=== PATIENT | male | born 1945 | race Hispanic/Latino ===

== ENCOUNTER 2018-04-27 11:27 | Observation (INO) | payer MEDICARE, BC ==
[2018-04-27 14:11] LABS: HEMOGLOBIN 13.5 g/dL (14.0-18.0); MEAN CELL VOLUME 94.4 fl (80.0-105.0); MEAN CORPUSCULAR HEMOGLOBIN 31.3 pg (25.0-35.0); MEAN CORPUSCULAR HGB CONC 33.1 g/dl (31.0-37.0); MEAN PLATELET VOLUME 11.1 fl (7.0-11.0); RBC 4.32 10^6/uL (3.5-6.1); RED CELL DISTRIBUTION WIDTH 13.7 % (11.5-14.5); WHITE BLOOD COUNT 4.2 10^3/uL (4.5-11.0)
[2018-04-27 14:20] LABS: INR 2.77; PARTIAL THROMBOPLASTIN TIME 40.6 Seconds (25.1-36.5); PROTHROMBIN TIME 32.5 SECONDS (9.4-12.5)
[2018-04-27 14:22] LABS: ALB/GLOB RATIO 1.6 (1.1-1.8); ALBUMIN 4.2 g/dL (3.0-4.8); ALT/SGPT 36 U/L (7-56); AST/SGOT 27 U/L (17-59); BLOOD UREA NITROGEN 20 mg/dL (7-21); CALCIUM 9.6 mg/dL (8.4-10.5); GFR NON-AFRICAN AMERICAN > 60
[2018-04-27 14:34] LABS: B-TYPE NATRIURETIC PEPTIDE 615 pg/mL (0-450); TROPONIN I 0.06 ng/mL
[2018-04-27 14:43] VITALS: BMI 37.2
--- NOTE | 2018-04-27 16:22 | RAD ---
Date of service: 04/27/2018 PROCEDURE: CHEST RADIOGRAPH, 1 VIEW HISTORY: shortness of breath COMPARISON: 12/10/2017 FINDINGS: LUNGS: Clear. PLEURA: No pneumothorax or pleural fluid seen. CARDIOVASCULAR: No aortic atherosclerotic calcification present. Cardiomegaly. No evidence of acute, significant cardiovascular disease. OSSEOUS STRUCTURES: No significant abnormalities. VISUALIZED UPPER ABDOMEN: Normal. OTHER FINDINGS: None. IMPRESSION: No active disease. No acute/significant interval changes.
--- NOTE | 2018-04-27 16:56 | US ---
HISTORY: Leg pain and swelling. Evaluate for DVT PHYSICIAN(S): Adal Valdez MD. TECHNIQUE: Duplex sonography and color-flow Doppler with graded compression were used to evaluate the deep venous systems of both lower extremities. FINDINGS: The visualized deep venous systems of both lower extremities are sonographically normal and compressible. Normal wave forms and augmentation are seen. There is no sonographic evidence for deep venous thrombosis in the visualized segments of both lower extremities. IMPRESSION: No sonographic evidence for deep venous thrombosis in the visualized segments of both lower extremities.
--- NOTE | 2018-04-27 17:40 | CARD ---
APPROVED REPORT Date of service: 04/27/2018 EKG Measurement Heart [id number] <Conclusion> Sinus rhythm with 1st degree AV block with premature supraventricular complexes Left axis deviation Nonspecific intraventricular conduction delay Abnormal ECG
--- NOTE | 2018-04-27 18:05 | CP.PCM.HP ---
<Slick Swift - Last Filed: 04/27/18 18:23> History of Present Illness - History of Present Illness History of Present Illness: Medicine History and Physical for Hospitalist Service, Dr. Rabia Swift, PGY-1 This is a 72 y o male with PMhx aortic valve replacement 26 y ago (on Coumadin and Lasix since), and HTN who presents to the ED c/o 3 week hx of swelling of LEs b/l along with worsening shortness of breath. Pt states that the shortness of breath has been getting progressively worse to the point where he is unable to lie down flat in bed without being short of breath. States elevating his legs alleviates LE swelling. Denies associated color changes, LE pain, or numbness/tingling. Denies hx of recent sick contacts. States he is compliant with taking home medications as prescribed. Denies chest pain or palpitations. Denies n/v/d/c, abd pain, urinary complaints, fever, chills, vision changes, or other symptoms. 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 Wise Primary E M Assembler: Dr. Mercedes Present on Admission - Present on Admission Any Indicators Present on Admission: No History of DVT/PE: No History of Uncontrolled Diabetes: No Urinary Catheter: No Decubitus Ulcer Present: No Review of Systems - Constitutional Constitutional: absent: Chills, Fever - Cardiovascular Cardiovascular: Dyspnea on Exertion. absent: Chest Pain - Respiratory Respiratory: Dyspnea on Exertion. absent: Cough, Hemoptysis, Wheezing, Chest Congestion - Gastrointestinal Gastrointestinal: absent: Abdominal Pain, Constipation, Diarrhea, Nausea, Vomiting Past Patient History - Infectious Disease Hx of Infectious Diseases: None - Tetanus Immunizations Tetanus Immunization: Unknown - Past Social History Chewing Tobacco Use: No - CARDIAC Hx Pacemaker: No - NEUROLOGICAL Hx Paralysis: No - HEMATOLOGICAL/ONCOLOGICAL Hx Blood Transfusions: No Hx Blood Transfusion Reaction: No - MUSCULOSKELETAL/RHEUMATOLOGICAL Hx Musculoskeletal Disorders: No - PSYCHIATRIC Hx Emotional Abuse: No Hx Physical Abuse: No Hx Substance Use: No - SURGICAL HISTORY Hx Surgeries: Yes - ANESTHESIA Hx Anesthesia Reactions: No Hx Malignant Hyperthermia: No Meds Allergies/Adverse Reactions: Allergies Allergy/AdvReac Type Severity Reaction Status Date / Time No Known Allergies Allergy Verified 11/02/13 16:14 Physical Exam - Constitutional Appears: Non-toxic, No Acute Distress - Head Exam Head Exam: ATRAUMATIC, NORMOCEPHALIC - Eye Exam Eye Exam: EOMI, Normal appearance, PERRL - ENT Exam ENT Exam: Mucous Membranes Moist - Respiratory Exam Respiratory Exam: Clear to Auscultation Bilateral, NORMAL BREATHING PATTERN. absent: Rales, Rhonchi, Wheezes - Cardiovascular Exam Cardiovascular Exam: REGULAR RHYTHM, +S1, +S2 Additional comments: Opening snap murmur heard on exam - GI/Abdominal Exam GI & Abdominal Exam: Normal Bowel Sounds, Soft. absent: Distended, Organomegaly, Tenderness - Extremities Exam Extremities exam: Positive for: full ROM, normal capillary refill, normal inspection, pedal edema (2+ pitting edema b/l), pedal pulses present. Negative for: joint swelling - Neurological Exam Neurological exam: Alert, CN II-XII Intact, Oriented x3, Reflexes Normal - Psychiatric Exam Psychiatric exam: Normal Affect, Normal Mood - Skin Skin Exam: Dry, Intact, Normal Color, Warm Results - Labs Result Diagrams: 04/27/18 12:45 04/27/18 12:45 Labs: Laboratory Results - last 24 hr 04/27/18 04/27/18 04/27/18 12:45 12:45 12:45 WBC 4.2 L RBC 4.32 Hgb 13.5 L Hct 40.8 L MCV 94.4 MCH 31.3 MCHC 33.1 RDW 13.7 Plt Count 147 MPV 11.1 H PT 32.5 H INR 2.77 APTT 40.6 H Sodium 139 Potassium 4.5 Chloride 101 Carbon Dioxide 33 Anion Gap 10 BUN 20 Creatinine 0.7 L Est GFR ( Amer) > 60 Est GFR (Non-Af Amer) > 60 Random Glucose 123 H Calcium 9.6 Total Bilirubin 0.8 AST 27 ALT 36 Alkaline Phosphatase 66 Lactate Dehydrogenase 668 Total Creatine Kinase 58 Troponin I 0.06 D NT-Pro-B Natriuret Pep 615 H Total Protein 6.8 Albumin 4.2 Globulin 2.6 Albumin/Globulin Ratio 1.6 Assessment & Plan - Assessment and Plan (Free Text) Assessment: This is a 72 y o male with PMhx aortic valve replacement 26 y ago (on Coumadin and Lasix since), and HTN who presents to the ED c/o 3 week hx of swelling of LEs b/l along with worsening shortness of breath. Likely 2/2 CHF exacerbation versus dependent edema. Plan: B/l LE swelling Likely 2/2 CHF exacerbation vs. dependent edema Doppler LE b/l demonstrates no evidence of DVT S/p Lasix in ED C/w Lasix 20 mg IVP bid Shortness of breath Likely 2/2 CHF exacerbation Saturating well on room air at this time CXR demonstrated no active disease BNP elevated at 615 Elevated Trop at 0.06, repeat trops x2 pending Pt denies chest pain or palpitations at this time Strict I's/O's Daily weights Lasix IVP bid Cardio consulted, Dr. Mercedes, recs appreciated HHD HTN Lasix IVP bid C/w home med Coreg 25 mg PO bid C/w Verapamil 180 mg daily Aortic valve replacement C/w Coumadin 5 mg PO this evening F/u repeat INR check in am tomorrow HLD C/w home Simvastatin daily DVT ppx: Coumadin GI ppx: n/a Pt seen, examined with, and plan discussed with Dr. Jones, attending physician. Slick Swift DO PGY-1, Learning Technologies Specialist Pager #[phone] <Rabia Jones R - Last Filed: 04/28/18 20:57> Results - Vital Signs Recent Vital Signs: Last Vital Signs Temp 98.5 F 04/28/18 18:00 Pulse 66 04/28/18 18:00 Resp 20 04/28/18 18:00 BP 124/87 04/28/18 18:00 Pulse Ox 96 04/28/18 05:39 - Labs Result Diagrams: 04/28/18 06:45 04/28/18 06:45 Labs: Laboratory Results - last 24 hr 04/27/18 04/28/18 04/28/18 20:25 06:45 06:45 WBC 5.0 RBC 4.55 Hgb 14.1 Hct 42.7 MCV 93.8 MCH 31.0 MCHC 33.0 RDW 13.8 Plt Count 151 MPV 10.7 Gran % 66.5 Lymph % (Auto) 21.2 L [place] % (Auto) 7.3 H Eos % (Auto) 4.4 Baso % (Auto) 0.6 Gran # 3.35 Lymph # (Auto) 1.1 L [place] # (Auto) 0.4 Eos # (Auto) 0.2 Baso # (Auto) 0.03 PT 28.9 H INR 2.47 APTT 37.1 H Sodium Potassium Chloride Carbon Dioxide Anion Gap BUN Creatinine Est GFR ( Amer) Est GFR (Non-Af Amer) Random Glucose Calcium Phosphorus Magnesium Total Bilirubin AST ALT Alkaline Phosphatase Troponin I 0.05 Total Protein Albumin Globulin Albumin/Globulin Ratio 04/28/18 06:45 WBC RBC Hgb Hct MCV MCH MCHC RDW Plt Count MPV Gran % Lymph % (Auto) [place] % (Auto) Eos % (Auto) Baso % (Auto) Gran # Lymph # (Auto) [place] # (Auto) Eos # (Auto) Baso # (Auto) PT INR APTT Sodium 139 Potassium 4.4 Chloride 102 Carbon Dioxide 31 Anion Gap 11 BUN 17 Creatinine 0.7 L Est GFR ( Amer) > 60 Est GFR (Non-Af Amer) > 60 Random Glucose 118 H Calcium 9.4 Phosphorus 3.1 Magnesium 1.8 Total Bilirubin 1.4 H AST 27 ALT 38 Alkaline Phosphatase 54 Troponin I 0.05 Total Protein 6.9 Albumin 4.3 Globulin 2.6 Albumin/Globulin Ratio 1.7 Attending/Attestation - Attestation I have personally seen and examined this patient.: Yes I have fully participated in the care of the patient.: Yes I have reviewed all pertinent clinical information: Yes Notes (Text): Patient seen and examined by me with resident at 5PM on 04/27/18. Case including HPI, physical exam, and assessment and plan discussed with resident. Agree with above with following additions/corrections. Patient is a 72-year-old male with past medical history significant for aortic valve replacement and hypertension that presented to the emergency room with bilateral lower extremity edema for the past 3-4 weeks and shortness of breath with exertion. Patient states that he has noticed swelling in his lower extremity for the past 3-4 weeks. He states it has not become any worse or better. He feels that his legs feel "heavy." He states that since this has occurred he has had difficulty sleeping. He sleeps on 2 pillows normally. She states that he elevated his legs at bedtime last night and that seemed to help a little bit. He did not try anything at home for this. He continued his regular Lasix on Wednesday, Wednesday, and Wednesday. He denies any tingling or numbness in his lower extremities. No difficulty ambulating. Patient states that he recently had a stress test with his cardiology which showed a skipped heartbeat. Patient states that since the swelling has occurred, he has also noticed that he has felt short of breath with exertion walking. He states he is able to walk long distance that he is walking slower than normal secondary to shortness of breath. Denies any chest pain or palpitations. No fevers or chills. No nausea, vomiting, or abdominal pain. No headaches or dizziness. No lightheadedness. No diarrhea or constipation. No dysuria. 12 point review of systems reviewed by me. See above HPI, all other systems negative. Past medical history: Aortic valve replacement 26 years ago on Coumadin followed by block handler Dr. Lee, essential hypertension Medications at home: Simvastatin 10 mg at bedtime, Lasix 20 mg Wednesday/Wednesday/Wednesday, lisinopril 60 mg daily, Coreg 25 mg twice a day, verapamil ER 180 mg daily, Coumadin 7.5 mg Wednesday//Wednesday/Wednesday, Coumadin 5 mg Wednesday/Wednesday/Wednesday Past surgical history: Bilateral cataract surgery, status post aortic valve replacement 26 years ago Allergies: NKDA Social History: Patient is a retired teacher. Denies any history of tobacco use. No alcohol use. No illicit drug use. Family History: Mom of sepsis and had a brain tumor. Father of CHF. Physical exam: General: Awake and alert sitting up in bed in no acute distress HEENT: Normocephalic, atraumatic. Extraocular muscles intact, pupils equal and reactive, no scleral icterus. Oropharynx is pink and moist. No pharyngeal erythema or exudate appreciated. Neck is supple. Hearing grossly intact. Ears and nose externally unremarkable. No JVD appreciated Cardiovascular: Regular rhythm. Normal S1 and S2. Positive click appreciated. No rubs or gallops appreciated Pulmonary: Normal respiratory effort. No rhonchi, rales, or wheezing appreciated Gastrointestinal: Soft. Nontender. Nondistended. Positive bowel sounds all 4 quadrants. No guarding. Musculoskeletal: Moves all extremities. No calf tenderness. No CVA tenderness. +2+ bilateral lower extremity edema more so near the ankles. Vascular: 2+ peripheral pulses upper and lower extremities Central nervous system: AAOx 3, CN 2-12 grossly intact. 5/5 muscle strength all extremities. Dermatologic: Skin warm and dry. Assessment and plan: Patient is a 72-year-old male with past medical history significant for aortic valve replacement and hypertension that presented to the emergency room with bilateral lower extremity edema for the past 3-4 weeks and shortness of breath with exertion. 1. Bilateral lower extermity edema. Exertional dyspnea. Chest xray as read by me shows some vascular congestion. ?CHF. Patient is on Coreg and lisinopril. Per patient, he had echo with block handler during the summer. Cardiology consulted, will follow up for echo results. BNP 615. Bilateral lower extremity venous dopplers negative for DVT. Monitor ins and outs. Monitor daily weights. Will place on lasix 20mg IV BID for now. 2. S/P aortic valve replacement. Continue coumadin. INR therapeutic at 2.77. Follow up repeat INR in AM. 3. Essential hypertension. Continue home Coreg, Lisinopril, and Verapamil. Continue Lasix. 4. Hyperlipidemia. Patient on simvastatin at home. Placed on Lipitor here. 5. DVT prophylaxis. On coumadin with therapeutic INR 6. Patient is a full code Case was discussed in detail with the patient regarding current diagnosis and treatment plan. All questions answered.
[2018-04-27] MEDS ORDERED: Pneumococcal 23-Valent Vaccine IM ONE (19:10)
[2018-04-27] MEDS ORDERED: Influenza Vaccine 60 mcg/0.5 mL SYR (4YR UP) IM ONE (19:10)
[2018-04-27] MEDS ORDERED: Latanoprost 2.5 ml Opht Soln OD SCH (22:00)
[2018-04-28 07:20] LABS: BASO # 0.03 K/mm3 (0.0-2.0); BASO % 0.6 % (0.0-3.0); EOS # 0.2 (0.0-0.7); EOS % 4.4 % (1.5-5.0); GRAN # 3.35 (1.4-6.5); GRAN % 66.5 % (50.0-68.0); HEMOGLOBIN 14.1 g/dL (14.0-18.0); LYMPH # 1.1 (1.2-3.4); LYMPH % 21.2 % (22.0-35.0); MEAN CELL VOLUME 93.8 fl (80.0-105.0); MEAN PLATELET VOLUME 10.7 fl (7.0-11.0); MONO # 0.4 (0.1-0.6); MONO % 7.3 % (1.0-6.0); RBC 4.55 10^6/uL (3.5-6.1); RED CELL DISTRIBUTION WIDTH 13.8 % (11.5-14.5)
[2018-04-28 07:33] LABS: ALB/GLOB RATIO 1.7 (1.1-1.8); ALBUMIN 4.3 g/dL (3.0-4.8); ALT/SGPT 38 U/L (7-56); AST/SGOT 27 U/L (17-59); BLOOD UREA NITROGEN 17 mg/dL (7-21); CALCIUM 9.4 mg/dL (8.4-10.5); GFR NON-AFRICAN AMERICAN > 60
[2018-04-28 07:36] LABS: INR 2.47; PARTIAL THROMBOPLASTIN TIME 37.1 Seconds (25.1-36.5); PROTHROMBIN TIME 28.9 SECONDS (9.4-12.5)
[2018-04-28 07:42] LABS: TROPONIN I 0.05 ng/mL
[2018-04-28] MEDS ORDERED: VERAPAMIL HCL 180 MG PO SCH (10:00)
[2018-04-28] MEDS ORDERED: Verapamil 180 mg ER Tab PO SCH (10:00)
--- NOTE | 2018-04-28 12:52 | CP.PCM.PN ---
<Slick Swift - Last Filed: 04/28/18 15:36> Subjective - Date & Time of Evaluation Date of Evaluation: 04/28/18 Time of Evaluation: 07:05 - Subjective Subjective: Medicine Progress Note for Hospitalist Service, Dr. Rabia Swift, DO PGY-1 Pt seen and examined at bedside this am. States he is feeling a little better with shortness of breath. Reports LE swelling is unchanged from yesterday. Reports voiding well and frequently. No acute events reported overnight by staff. Denies fever, chills, chest pain, n/v/d/c, abd pain, urinary complaints, or other symptoms. Objective - Vital Signs/Intake and Output Vital Signs (last 24 hours): Temp Pulse Resp BP Pulse Ox 98.1 F 82 18 143/66 96 04/28/18 05:39 04/28/18 10:00 04/28/18 05:39 04/28/18 09:38 04/28/18 05:39 Intake and Output: 04/28/18 04/28/18 06:59 18:59 Intake Total 360 360 Balance 360 360 - Medications Medications: Current Medications Atorvastatin Calcium (Lipitor) 10 mg PO DIN [facility] Carvedilol (Coreg) 25 mg PO BID [facility] Last Admin: 04/28/18 09:37 Dose: 25 mg Furosemide (Lasix) 20 mg IVP BID [facility] Last Admin: 04/28/18 09:38 Dose: 20 mg Latanoprost (Xalatan Opht) 0.02 ml OD HS [facility] Verapamil HCl (Calan Sr Tab) 180 mg PO DAILY [facility] Last Admin: 04/28/18 09:37 Dose: 180 mg Warfarin Sodium (Coumadin) 7.5 mg PO 1800 CALVIN; Protocol - Labs Labs: 04/28/18 06:45 04/28/18 06:45 PT 28.9 SECONDS (9.4-12.5) H 04/28/18 06:45 INR 2.47 04/28/18 06:45 APTT 37.1 Seconds (25.1-36.5) H 04/28/18 06:45 - Constitutional Appears: Non-toxic, No Acute Distress - Head Exam Head Exam: ATRAUMATIC, NORMOCEPHALIC - Eye Exam Eye Exam: EOMI, Normal appearance, PERRL - ENT Exam ENT Exam: Mucous Membranes Moist - Respiratory Exam Respiratory Exam: Clear to Ausculation Bilateral, NORMAL BREATHING PATTERN. absent: Rales, Rhonchi, Wheezes - Cardiovascular Exam Cardiovascular Exam: REGULAR RHYTHM, +S1, +S2. absent: Gallop, Rubs, Murmur - GI/Abdominal Exam GI & Abdominal Exam: Soft, Normal Bowel Sounds. absent: Distended, Tenderness, Organomegaly, Rebound - Extremities Exam Extremities Exam: Full ROM, Normal Capillary Refill. absent: Tenderness Additional comments: 2+ LE edema b/l - Neurological Exam Neurological Exam: Alert, Awake, CN II-XII Intact, Oriented x3 - Psychiatric Exam Psychiatric exam: Normal Affect, Normal Mood - Skin Skin Exam: Dry, Intact, Normal Color, Warm Assessment and Plan - Assessment and Plan (Free Text) Assessment: This is a 72 y o male with PMhx aortic valve replacement 26 y ago (on Coumadin and Lasix since), and HTN who presented to the ED c/o 3 week hx of swelling of LEs b/l along with worsening shortness of breath. Likely 2/2 CHF exacerbation versus dependent edema. Plan: B/l LE swelling Likely 2/2 CHF exacerbation vs. dependent edema Doppler LE b/l demonstrates no evidence of DVT S/p Lasix in ED C/w Lasix 20 mg IVP bid Shortness of breath Likely 2/2 CHF exacerbation Saturating well on room air at this time CXR demonstrated no active disease BNP elevated at 615 Elevated Trop at 0.06, repeat trops 0.05 and 0.05 Pt denies chest pain or palpitations at this time Strict I's/O's Daily weights Lasix IVP bid Cardio consulted, Dr. Mercedes, recs appreciated HHD Echo 04/28: biatrial enlargement, mild-mod concentric LVH, mildly reduced LV systolic fx with global hypokinesis. Normally functioning aortic mechanical prosthesis with physiologic gradient. Mild MR and TR. HTN Lasix IVP bid C/w home med Coreg 25 mg PO bid C/w Verapamil 180 mg daily Aortic valve replacement Coumadin 7.5 mg PO this evening, INR today 2.47. Continue to trend F/u repeat INR check in am tomorrow HLD C/w home Simvastatin daily DVT ppx: Coumadin GI ppx: n/a Pt seen, examined with, and plan discussed with Dr. Jones, attending physician. Slick Swift DO PGY-1, Jewelry Appraiser Pager #[phone] <Rabia Jones R - Last Filed: 05/01/18 18:03> Objective - Vital Signs/Intake and Output Vital Signs (last 24 hours): Temp Pulse Resp BP Pulse Ox 97.4 F L 71 18 112/75 98 04/29/18 12:00 04/29/18 12:00 04/29/18 12:00 04/29/18 12:00 04/29/18 06:00 - Labs Labs: 04/29/18 06:30 04/29/18 06:30 PT 29.9 SECONDS (9.4-12.5) H 04/29/18 06:30 INR 2.55 04/29/18 06:30 APTT 37.0 Seconds (25.1-36.5) H 04/29/18 06:30 Attending/Attestation - Attestation I have personally seen and examined this patient.: Yes I have fully participated in the care of the patient.: Yes I have reviewed all pertinent clinical information, including history, physical exam and plan: Yes Notes (Text): Patient seen and examined by me with resident at 4:30PM on 04/28/18. Case including HPI, physical exam, and assessment and plan discussed with resident. Agree with above with following additions/corrections. Patient is a 72-year-old male with past medical history significant for aortic valve replacement and hypertension that presented to the emergency room with bilateral lower extremity edema for the past 3-4 weeks and shortness of breath with exertion. Patient states he is feeling a little better. He was still unable to sleep well last night. He states he knows he needs to lose weight. Patient has ambulated and shortness of breath improved. Patient denies any chest pain or palpitations. No fevers or chills. No nausea, vomiting, or abdominal pain. No headaches or dizziness. No lightheadedness. No diarrhea or constipation. No dysuria. Physical exam: General: Awake and alert sitting up in bed in no acute distress HEENT: Normocephalic, atraumatic. Extraocular muscles intact, pupils equal and reactive, no scleral icterus. Oropharynx is pink and moist. No pharyngeal erythema or exudate appreciated. Neck is supple. No JVD appreciated Cardiovascular: Regular rhythm. Normal S1 and S2. Positive click appreciated. No rubs or gallops appreciated Pulmonary: Normal respiratory effort. No rhonchi, rales, or wheezing appreciated Gastrointestinal: Soft. Nontender. Nondistended. Positive bowel sounds all 4 quadrants. No guarding. Musculoskeletal: Moves all extremities. No calf tenderness. No CVA tenderness. Positive bilateral lower extremity pitting edema. Central nervous system: AAOx 3, CN 2-12 grossly intact. 5/5 muscle strength all extremities. Dermatologic: Skin warm and dry. Assessment and plan: Patient is a 72-year-old male with past medical history significant for aortic valve replacement and hypertension that presented to the emergency room with bilateral lower extremity edema for the past 3-4 weeks and shortness of breath with exertion. 1. Bilateral lower extermity edema. Exertional dyspnea. Chest xray as read by me shows some vascular congestion. 2D echo per clean rice grader and reel tender showed bilateral enl argement, mild to moderate LVH, mildly reduced LV function with global hypokinesis, normal functioning aortic mechanical prosthesis with physiologic gradient. Continue Coreg and lisinopril. Cardiology following, recommendations appreciated. Continue Lasix. BNP 615. Bilateral lower extremity venous dopplers negative for DVT. 2. S/P aortic valve replacement. Continue coumadin. INR therapeutic. Follow up repeat INR in AM. 3. Essential hypertension. Continue Coreg, Lisinopril, and Verapamil. Continue Lasix. 4. Hyperlipidemia. Patient on simvastatin at home. Continue Lipitor here. 5. DVT prophylaxis. On coumadin with therapeutic INR 6. Patient is a full code Case was discussed in detail with the patient regarding current diagnosis and treatment plan. All questions answered.
--- NOTE | 2018-04-28 13:42 | CARD ---
APPROVED REPORT Date of service: 04/28/2018 EXAM: Two-dimensional and M-mode echocardiogram with Doppler and color Doppler. INDICATION Congestive Heart Failure S/P AVR 2D DIMENSIONS Left Atrium (2D)5.2 (1.6-4.0cm)IVSd1.8 (0.7-1.1cm) LVDd5.0 (3.9-5.9cm)PWd1.9 (0.7-1.1cm) M-Mode DIMENSIONS Aortic Root3.80 (2.2-3.7cm) Aortic Valve AoV Peak Fizyqgqx969.0cm/Luisito Peak GR.18mmHg Mitral Valve MV E Bbwndugz624.0cm/sMV A Uvduzvat34.4cm/sE/A ratio2.5 TDI Lateral E' Peak V6.73cm/sMedial E' Peak V4.00cm/sE/Lateral E'17.7 E/Medial E'29.8 Pulmonary Valve PV Peak Uvdvpkri25.0cm/sPV Peak Grad.2mmHg Tricuspid Valve TR Peak [id number]/sRAP [id number] Peak Gr.22mmHg [id number] LEFT VENTRICLE The left ventricle is normal size. There is mild to moderate concentric left ventricular hypertrophy. The systolic function is mildly impaired. There is global hypokinesis of the left ventricle. RIGHT VENTRICLE The right ventricle is normal size. The right ventricular systolic function is normal. ATRIA The left atrium is moderately dilated. The right atrium is mildly dilated. The interatrial septum is intact with no evidence for an atrial septal defect. AORTIC VALVE There is a bi-leaflet ([place]) mechanical aortic valve prosthesis. The prosthetic aortic valve appears normal. MITRAL VALVE The mitral valve is mildly thickened. Mitral regurgitation is mild. TRICUSPID VALVE The tricuspid valve is normal in structure. There is mild tricuspid regurgitation. PULMONIC VALVE The pulmonary valve is normal in structure. GREAT VESSELS The aortic root is normal in size. The IVC is normal in size and collapses >50% with inspiration. PERICARDIAL EFFUSION There is no pleural effusion. There is no pericardial effusion. <Conclusion> Biatrial enlargement. Mild to moderate concentric LVH. Mildly reduced LV systolic function wtih global hypokinesis. Normally functioning aortic mechanical prosthesis with physiologic gradient. Mild MR and TR.
[2018-04-28] MEDS ORDERED: Non Formulary Medication (Simvastatin [Simvastatin] 10 MG) PO SCH (18:00)
--- NOTE | 2018-04-29 01:30 | CON ---
DATE: 04/28/2018 REQUESTING PHYSICIAN: Dr. Soriano. REASON FOR CONSULTATION: Leg edema. HISTORY OF PRESENT ILLNESS: This is a 72-year-old man well known to me with a history of prior aortic stenosis, status post aortic valve replacement, who was admitted with worsening leg edema, dyspnea, PND, and orthopnea. In the emergency room, he was treated with IV Lasix with some improvement in his symptoms. A venous duplex scan of lower extremities revealed no evidence of a DVT. He underwent aortic valve replacement 26 years ago and has done quite well since that time. This was performed with a [employer] mechanical valve. He remains on chronic Coumadin therapy, followed by Dr. Wise. He also has a history of hypertension and chronic obesity, which has worsened over the past several months. He has been struggling with some anxiety and depression issues as well as the recent of his father. PAST MEDICAL HISTORY: His past history is known for the problems mentioned above. He has a history of hyperlipidemia as well. ALLERGIES: NONE. MEDICATIONS: Medications at home include warfarin, verapamil 180 mg daily, simvastatin 10 mg daily, lisinopril 60 mg daily, Lasix 20 mg three times a week, carvedilol 25 mg b.i.d. SOCIAL HISTORY: He does not smoke or drink. 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 FAMILY HISTORY: Father recently at the age of 95 from congestive heart failure. REVIEW OF SYSTEMS: A 10-point review of systems otherwise unremarkable. PHYSICAL EXAMINATION: GENERAL: He is an obese middle-aged man. VITAL SIGNS: His blood pressure was 142/66 with a pulse of 80 and respirations are 16. He is in sinus rhythm. HEENT: Normocephalic, atraumatic. NECK: Supple. No JVD noted. CHEST: Clear to auscultation, percussion. HEART: PMI displaced laterally with crisp prosthetic valve sounds heard. ABDOMEN: Soft, obese, nontender, normoactive bowel sounds. EXTREMITIES: Revealed 2 to 3+ leg edema with chronic cellulitic changes. SKIN: Warm and dry. PSYCHIATRIC: Normal mood and affect. NEUROLOGIC: Alert and oriented x3. No gross motor or sensory deficit noted. DIAGNOSTIC DATA: Potassium is 4.4, BUN/creatinine is 17 and 0.7, glucose 118. White count 5, hemoglobin/hematocrit 14.1 and 42.7 with platelet count 151,000. INR 2.47. Two sets of cardiac enzymes are negative. BNP 615. Venous duplex scan of both lower extremities revealed no evidence of deep vein thrombosis. Electrocardiogram revealed sinus rhythm with first-degree AV block and nonspecific intraventricular conduction delay with left axis deviation. Chest x-ray revealed post-sternotomy changes, enlarged cardiac silhouette, and clear lung queen. IMPRESSION: 1. Dyspnea, peripheral edema, appears somewhat volume overloaded. No evidence of prosthetic valve dysfunction on physical examination. 2. History of aortic stenosis, status post aortic valve replacement. 3. History of hypertension, hyperlipidemia. 4. Chronic obesity. RECOMMENDATIONS: An echocardiogram will be obtained and reviewed. A stress test was performed earlier this year, which showed no evidence of ischemia. IV diuretic therapy will be continued for now. Sodium restriction was advised. Aggressive dietary efforts have been recommended. If he diureses well, discharge home within 24 to 48 hours will be advisable. Given his peripheral edema continues, verapamil may be not ideal. This will be withheld and an angiotensin receptor flora will be initiated for his control of hypertension. Thank you for this consultation. We will be happy to follow along through his hospital course. Darren Mercedes MD
[2018-04-29 06:15] VITALS: O2SAT 98
[2018-04-29 06:59] LABS: BASO # 0.02 K/mm3 (0.0-2.0); BASO % 0.4 % (0.0-3.0); EOS # 0.2 (0.0-0.7); EOS % 4.1 % (1.5-5.0); GRAN # 2.9 (1.4-6.5); GRAN % 58.7 % (50.0-68.0); HEMOGLOBIN 14.3 g/dL (14.0-18.0); LYMPH # 1.3 (1.2-3.4); MEAN CELL VOLUME 93.5 fl (80.0-105.0); MEAN CORPUSCULAR HEMOGLOBIN 31.1 pg (25.0-35.0); MEAN CORPUSCULAR HGB CONC 33.3 g/dl (31.0-37.0); MEAN PLATELET VOLUME 10.3 fl (7.0-11.0); MONO # 0.5 (0.1-0.6); MONO % 10.8 % (1.0-6.0); RBC 4.6 10^6/uL (3.5-6.1); RED CELL DISTRIBUTION WIDTH 13.7 % (11.5-14.5); WHITE BLOOD COUNT 4.9 10^3/uL (4.5-11.0)
[2018-04-29 07:18] LABS: INR 2.55; PROTHROMBIN TIME 29.9 SECONDS (9.4-12.5)
[2018-04-29 07:34] LABS: ALB/GLOB RATIO 1.5 (1.1-1.8); ALBUMIN 4.3 g/dL (3.0-4.8); ALT/SGPT 37 U/L (7-56); AST/SGOT 28 U/L (17-59); BLOOD UREA NITROGEN 21 mg/dL (7-21); CALCIUM 9.9 mg/dL (8.4-10.5); GFR NON-AFRICAN AMERICAN > 60
[2018-04-29 12:11] VITALS: BP 112/75; PULSE 71; RESP 18; TEMP 97.4
--- NOTE | 2018-04-29 13:05 | CP.PCM.DIS ---
Provider - Provider Date of Admission: 04/27/18 16:25 Attending physician: Rabia Jones DO Primary care physician: Umair Wise MD Consults: 04/27/18 18:08 Cardiology Consult Routine Comment: Consulting Provider: Darren Mercedes Consulting Physician: Darren Mercedes Reason for Consult: Sob, LE edema b/l, hx aortic valve replacement 04/27/18 18:34 Social Work Referral Routine Comment: d/c plan Physician Instructions: Reason For Exam: eval 04/27/18 19:10 Inpatient INDUSTRIAL SECURITY ANALYST Core Measures Referral Routine Comment: dyspnea Physician Instructions: Reason For Exam: eval Transition In Care/Readmission Reduction Routine Comment: dyspnea Physician Instructions: Reason For Exam: eval Time Spent in preparation of Discharge (in minutes): 42 Diagnosis - Discharge Diagnosis (1) CHF exacerbation Status: Resolved Priority: High (2) Dependent edema Status: Chronic Priority: High Hospital Course - Lab Results Lab Results: Most Recent Lab Values WBC 4.9 10^3/uL (4.5-11.0) 04/29/18 06:30 RBC 4.60 10^6/uL (3.5-6.1) 04/29/18 06:30 Hgb 14.3 g/dL (14.0-18.0) 04/29/18 06:30 Hct 43.0 % (42.0-52.0) 04/29/18 06:30 MCV 93.5 fl (80.0-105.0) 04/29/18 06:30 MCH 31.1 pg (25.0-35.0) 04/29/18 06:30 MCHC 33.3 g/dl (31.0-37.0) 04/29/18 06:30 RDW 13.7 % (11.5-14.5) 04/29/18 06:30 Plt Count 141 10^3/uL (120.0-450.0) 04/29/18 06:30 MPV 10.3 fl (7.0-11.0) 04/29/18 06:30 Gran % 58.7 % (50.0-68.0) 04/29/18 06:30 Lymph % (Auto) 26.0 % (22.0-35.0) 04/29/18 06:30 [place] % (Auto) 10.8 % (1.0-6.0) H 04/29/18 06:30 Eos % (Auto) 4.1 % (1.5-5.0) 04/29/18 06:30 Baso % (Auto) 0.4 % (0.0-3.0) 04/29/18 06:30 Gran # 2.90 (1.4-6.5) 04/29/18 06:30 Lymph # (Auto) 1.3 (1.2-3.4) 04/29/18 06:30 [place] # (Auto) 0.5 (0.1-0.6) 04/29/18 06:30 Eos # (Auto) 0.2 (0.0-0.7) 04/29/18 06:30 Baso # (Auto) 0.02 K/mm3 (0.0-2.0) 04/29/18 06:30 PT 29.9 SECONDS (9.4-12.5) H 04/29/18 06:30 INR 2.55 04/29/18 06:30 APTT 37.0 Seconds (25.1-36.5) H 04/29/18 06:30 Sodium 140 mmol/L (132-148) 04/29/18 06:30 Potassium 4.9 mmol/L (3.6-5.0) 04/29/18 06:30 Chloride 97 mmol/L (98-107) L 04/29/18 06:30 Carbon Dioxide 37 mmol/L (21-33) H 04/29/18 06:30 Anion Gap 11 (10-20) 04/29/18 06:30 BUN 21 mg/dL (7-21) 04/29/18 06:30 Creatinine 0.9 mg/dl (0.8-1.5) 04/29/18 06:30 Est GFR ( Amer) > 60 04/29/18 06:30 Est GFR (Non-Af Amer) > 60 04/29/18 06:30 Random Glucose 112 mg/dL (70-110) H 04/29/18 06:30 Calcium 9.9 mg/dL (8.4-10.5) 04/29/18 06:30 Phosphorus 3.6 mg/dL (2.5-4.5) 04/29/18 06:30 Magnesium 1.9 mg/dL (1.7-2.2) 04/29/18 06:30 Total Bilirubin 1.3 mg/dL (0.2-1.3) 04/29/18 06:30 AST 28 U/L (17-59) 04/29/18 06:30 ALT 37 U/L (7-56) 04/29/18 06:30 Alkaline Phosphatase 52 U/L (38-126) 04/29/18 06:30 Lactate Dehydrogenase 668 U/L (333-699) 04/27/18 12:45 Total Creatine Kinase 58 U/L (35-230) 04/27/18 12:45 Troponin I 0.05 ng/mL 04/28/18 06:45 NT-Pro-B Natriuret Pep 615 pg/mL (0-450) H 04/27/18 12:45 Total Protein 7.1 g/dL (5.8-8.3) 04/29/18 06:30 Albumin 4.3 g/dL (3.0-4.8) 04/29/18 06:30 Globulin 2.8 gm/dL 04/29/18 06:30 Albumin/Globulin Ratio 1.5 (1.1-1.8) 04/29/18 06:30 - Hospital Course Hospital Course: This is a 72 y o male with PMhx aortic valve replacement 26 y ago (on Coumadin and Lasix since), and HTN who presents to the ED c/o 3 week hx of swelling of LEs b/l along with worsening shortness of breath. Pt states that the shortness of breath has been getting progressively worse to the point where he is unable to lie down flat in bed without being short of breath. States elevating his legs alleviates LE swelling. Denies associated color changes, LE pain, or numbness/tingling. Denies hx of recent sick contacts. States he is compliant with taking home medications as prescribed. Denies chest pain or palpitations. Denies n/v/d/c, abd pain, urinary complaints, fever, chills, vision changes, or other symptoms. PMhx: aortic valve replacement 26 y ago, HTN, HLD PSurgHx: aortic valve replacement Allergies: NKDA Home meds: Coumadin (5 mg , 7.5 mg Thurs Sat Sun), Verapamil HCl 180 mg q am, Simvastatin 10 mg daily, Lisinopril 60 mg daily, Latanoprost eye drops, Lasix 20 mg , Carvedilol 25 mg PO bid Fam hx: Father recently at age 95 from CHF Soc hx: denies smoking, EtOH, or illicit drug use; retired teacher, lives at home with PMD: Dr. Wise Primary News Assistant: Dr. Mercedes HOSPITAL COURSE: Mr Puckett was treated as a CHF exacerbation with a component of dependent edema. Dopplers of the LE's ruled out a DVT. He had a probnp of 615. An echo was performed which showed "biatrial enlargement, mild-mod concentric LVH, mildly reduced LV systolic fx with global hypokinesis. Normally functioning aortic me chanical prosthesis with physiologic gradient. Mild MR and TR." A CXR did not show any active disease. Troponins were negative x3. EKG showed LVH and 1st degree AV block. Mr Puckett's fixture fabricator repairer, Dr Lee, was consulted. We treated with lasix 40mg bid to remove his excess fluid. He very soon after had relief of symptoms and reduction in LE edema. We continued his home medications which included coumadin with daily INR checks (for his hx of AV valve replacement), verapamil, coreg and lipitor. Dr Lee made the following adjustments to his regimen - he discontinued his verapamil and lisinopril and instead started losartan, he also recommended Mr Puckett be started on lasix 40mg po qd at home instead of lasix 20mg MWF. Mr Puckett will soon follow-up with Dr Lee outpatient in his of [facility]. Discharge Exam - Head Exam Head Exam: ATRAUMATIC, NORMOCEPHALIC - Eye Exam Eye Exam: EOMI, Normal appearance, PERRL. absent: Scleral icterus - ENT Exam ENT Exam: Mucous Membranes Moist - Neck Exam Neck exam: Full Rom, Normal Inspection - Respiratory Exam Respiratory Exam: Clear to PA & Lateral, NORMAL BREATHING PATTERN, UNREMARKABLE. absent: Rales, Rhonchi, Wheezes, Respiratory Distress - Cardiovascular Exam Cardiovascular Exam: REGULAR RHYTHM, +S1, +S2. absent: Bradycardia, Tachycardia, +S4, Systolic Murmur Additional comments: click heart best at right sternal border - GI/Abdominal Exam GI & Abdominal Exam: Normal Bowel Sounds, Tenderness, Unremarkable. absent: Distended, Firm, Guarding, Hernia, Soft - Extremities Exam Extremities exam: normal capillary refill, pedal edema, pedal pulses present Additional comments: pitting edema 2+ improved from day of admission - Neurological Exam Neurological exam: Alert, Oriented x3 - Psychiatric Exam Psychiatric exam: Normal Affect, Normal Mood - Skin Skin Exam: Dry, Intact, Normal Color, Warm Discharge Plan - Discharge Medications Prescriptions: Furosemide [Lasix] 40 mg PO DAILY #30 tab Losartan [Cozaar] 100 mg PO DAILY #30 tab - Follow Up Plan Condition: FAIR Disposition: HOME/ ROUTINE Instructions: Heart Failure, Adult, Aortic Valve Replacement, Heart Healthy Diet, Dependent Edema (DC), Low Salt Diet Additional Instructions: Please follow-up with your Primary Medical Doctor, Dr Wise, within 3-5 days. Please follow-up with your News Assistant, Dr Lee, within 3-5 days. Please DISCONTINUE your Verapamil and Lisinopril. Instead you will be started on Losartan. Please note that you will now take Lasix EVERYDAY. In summary, please continue the following medications: 1. Coumadin 5mg on Wednesday, Wednesday, Wednesday 2. Coumadin 7.5mg on Wednesday, Wednesday, , Wednesday 3. Simvastatin 10mg 1 tablet at bedtime 4. Xalatan 1 drop in both eyes at bedtime 5. Lasix 40mg 1 tablet at 10AM 6. Coreg 25mg 1 tablet at 10AM and 1 tablet at 8PM 7. Losartan 100mg 1 tablet at 10AM We have provided you scripts for a 30 days supply of Losartan and Lasix, please get refills needed by your fixture fabricator repairer or primary care doctor. Please restrict your sodium intake to no more than 2 grams per day. Please adhere to a strict healthy diet including fruits and vegetables over fatty foods. Please make sure to get your INR checked as recommended by your fixture fabricator repairer and primary medical doctor. If symptoms return, please go to your nearest emergency department. Referrals: Darren Mercedes MD [Staff Provider] - Umair Wise MD [Primary Care Provider] - Clinical Quality Measures - CQM - Heart Failure Left Ventricular Function to be assessed after discharge: Yes CRISTINE Inhibitor Prescribed: No Contraindication/Reason for not providing: arb prescribed Beta-Timothy Prescribed: Carvedilol Angiotensin II Receptor Timothy Prescribed: Yes AnticoagulationTherapy for Atrial Fibrillation/Atrialflutter: No Contraindication/Reason for not providing: no afib Aldosterone Antagonist Prescribed: No Contraindication/Reason for not providing: lasix only Hydralazine Nitrate Prescribed: No Contraindication/Reason for not providing: cardio did not recommend Will be discharged to: Home Follow Up Date (must be within 7 days from discharge): 05/04/18
--- NOTE | 2018-04-30 00:54 | PN ---
DATE: 04/29/2018 SUBJECTIVE: The patient is seen sitting in a chair on telemetry. He feels significantly better. His dyspnea is improved. His leg edema is improved as well. PHYSICAL EXAMINATION: GENERAL: He is a middle-aged man who appears comfortable at rest. VITAL SIGNS: His blood pressure is 116/76 with pulse of 70 and sinus, respirations are 14. He is afebrile. NECK: No JVD. CHEST: Few scattered rhonchi. CARDIOPULMONARY: PMI displaced laterally with crisp prosthetic valve sounds. ABDOMEN: Soft, obese, nontender with bowel sounds. EXTREMITIES: Bilateral venous varicosities present, 1+ leg edema is present as well. DIAGNOSTIC DATA: Potassium 4.9, BUN and creatinine 21 and 0.9. White count 4.9, hematocrit 14.3 and 43.0 with platelet count of 141,000. INR is 2.55. Echocardiogram revealed a normally functioning aortic mechanical prosthesis with physiologic gradient, mildly reduced LV systolic function with global hypokinesis, changed from prior studies. CURRENT MEDICATIONS: Include carvedilol 25 mg b.i.d., warfarin, Cozaar 100 mg daily, Lasix 40 mg IV b.i.d., Lipitor 10 mg daily and Xalatan eyedrops. IMPRESSION: 1. Recent volume overload, now clinically improved. 2. History of aortic stenosis status post aortic valve replacement with normally functioning prosthetic valve. 3. History of hypertension. 4. Rest of problems as noted. RECOMMENDATIONS: At this time, Lasix can be switched over to oral administration. From a cardiac standpoint, he appears stable for discharge home today. The need for sodium restriction was advised. Close outpatient followup will be arranged. Compression stockings were used and was advised as well. Outpatient followup was arranged. Darren Mercedes MD MTDD
== END 2018-04-29 14:45 | disposition home or self-care (01) ==
LOC: ED 11:27 → ERH 16:25 → 2RSO 18:55
PROVIDERS: ADMIT Hospitalist; ATTEND Hospitalist
DX: I11.0 Hypertensive heart disease with heart failure (principal); I50.9 Heart failure, unspecified; E78.5 Hyperlipidemia, unspecified; F32.9 Major depressive disorder, single episode, unspecified; F41.9 Anxiety disorder, unspecified; I44.0 Atrioventricular block, first degree; E66.9 Obesity, unspecified; Z68.37 Body mass index [BMI] 37.0-37.9, adult; Z95.2 Presence of prosthetic heart valve; Z79.01 Long term (current) use of anticoagulants
CPT/HCPCS: 36415; 71045; 80053; 82550; 83615; 83735; 83880; 84100; 84484; 85025; 85027; 85610; 85730; 93005; 93306; 93970; 99281; G0378; J1940

== ENCOUNTER 2018-05-23 11:11 | Outpatient (CLI) | payer MEDICARE | END 2018-05-23 11:12 | disposition home or self-care (01) | LOC: RAD 11:11 ==

== ENCOUNTER 2018-06-02 10:41 | Outpatient (CLI) | payer MEDICARE, BC | END 2018-06-02 10:42 | disposition home or self-care (01) | LOC: RAD 10:41 ==